=== PATIENT | male | born 1950 | race Caucasian/White ===

== ENCOUNTER 2021-11-07 11:49 | Outpatient (CLI) | payer BC ==
[2021-11-07 14:29] LABS: Mean Corpuscular HGB CONC 33.6 g/dL (32.0-36.0); Mean Corpuscular Hemoglobin 32.2 pg (27.0-33.0); Mean Corpuscular Volume 95.7 fl (81.2-95.1); Mean Platelet Volume 11.3 fl (7.4-10.4); Platelet Count 213 10x3/uL (150-450); Red Blood Cell (RBC) Count 3.73 10x6/uL (4.32-5.72); White Blood Cell (WBC) Count 6.7 10x3/uL (3.5-10.5)
[2021-11-07 14:40] LABS: Anion Gap 14 mmol/L (10-20); BUN (Urea Nitrogen) 19 mg/dL (8.4-25.7); Calc. Creatinine Clearance 0 mL/min (70-130); Calcium 9.2 mg/dL (7.8-10.44); Carbon Dioxide 27 mmol/L (23-31); Chloride 103 mmol/L (98-107); Glucose 102 mg/dL (83-110); Sodium 140 mmol/L (136-145)
[2021-11-07 23:42] LABS: SARS-CoV-2 PCR by NAA Not Detected (NotDetected)
== END 2021-11-07 11:50 | disposition home or self-care (01) ==
LOC: CSHLAB 11:49
PROVIDERS: ATTEND Podiatrist Foot & Ankle Surgery
DX: Z01.818 Encounter for other preprocedural examination (principal); Z20.822 Contact with and (suspected) exposure to COVID-19; M20.21 Hallux rigidus, right foot
CPT/HCPCS: 80048; 85027; 93005; 93010; U0003; U0005

== ENCOUNTER 2021-11-09 10:56 | Day surgery (SDC) | payer BC ==
[2021-11-06 14:32] VITALS: BMI 32.3
[2021-11-09] MEDS ORDERED: Lidocaine 1% MPF 2 ML VIAL ONE (12:21)
[2021-11-09] MEDS ORDERED: Bupivacaine PF 0.5% 30 ML VIAL ONE (13:13)
[2021-11-09] MEDS ORDERED: Fentanyl 100 MCG/2 ML VIAL ONE (13:25)
[2021-11-09] MEDS ORDERED: Midazolam HCl 2 mg/2 ml Vial ONE (13:25)
[2021-11-09] MEDS ORDERED: PROPOFOL 20 ML ONE (13:25)
[2021-11-09] MEDS ORDERED: Ondansetron PF 4 MG/2 ML Vial ONE (13:26)
[2021-11-09] MEDS ORDERED: Ketorolac Tromethamine 30 MG/ML VIAL ONE (13:26)
[2021-11-09] MEDS ORDERED: Dexamethasone 20 MG/5 ML VIAL ONE (13:26)
[2021-11-09] MEDS ORDERED: Lidocaine 1% PF 5 ML VIAL ONE (13:26)
[2021-11-09] MEDS ORDERED: ceFAZolin 2 GM/Dextrose 50 ML IVPB ONE (13:39)
[2021-11-09] MEDS ORDERED: ePHEDrine Sulfate 50 MG/10 ML VIAL ONE (14:34)
[2021-11-09] MEDS ORDERED: Glycopyrrolate 0.2 MG/ML 5 ML SYRINGE ONE (15:00)
== END 2021-11-09 17:30 | disposition home or self-care (01) ==
LOC: CSHSDC 10:56
PROVIDERS: ATTEND Podiatrist Foot & Ankle Surgery
PROC: 0SRM0JZ Replacement of Right Metatarsal-Phalangeal Joint with Synthetic Substitute, Open Approach (ICD-10-PCS; principal; 2021-11-09)
DX: M20.21 Hallux rigidus, right foot (principal); M19.071 Primary osteoarthritis, right ankle and foot; Z79.899 Other long term (current) drug therapy; I10 Essential (primary) hypertension; I25.10 Atherosclerotic heart disease of native coronary artery without angina pectoris; Z87.891 Personal history of nicotine dependence
CPT/HCPCS: 76000; C1713; C1776; J0690; J1100; J1885; J2250; J2405; J2704; J3010; S0020